=== PATIENT | female | born 1940 | race Caucasian/White ===

== ENCOUNTER 2020-09-16 16:53 | Inpatient (IN) ==
[2020-09-17] MEDS: lisinopriL 10 MG TABLET PO SCH (23:16)
[2020-09-18 05:44] LABS: Basophils # 0.1 K/mcL (0.0-0.2); Basophils % 0.9 %; Eosinophils # 0.5 K/mcL (0.0-0.6); Eosinophils % 8.2 %; Hematocrit 40.1 % (35.3-44.9); Hemoglobin 13.7 g/dL (11.5-15.4); Immature Granulocytes % 0.4 % (0-4); Lymphocytes # 1.8 K/mcL (0.6-4.6); Lymphocytes % 32.6 %; Mean Corpuscular HGB Conc 34.2 g/dL (31.6-35.5); Mean Corpuscular Hemoglobin 32.5 pg (28.0-33.3); Mean Corpuscular Volume 95.2 fL (83.0-100.0); Mean Platelet Volume 9.7 fL (9.4-12.4); Monocytes # 0.7 K/mcL (0.0-1.3); Monocytes % 13.4 %; Neutrophils # 2.5 K/mcL (1.6-8.9); Platelet Count 279 K/mcL (140-400); Red Blood Count 4.21 M/mcL (3.82-4.97); Red Cell Distribution Width 13.6 % (11.5-14.5); Segmented Neutrophils % 44.5 %; White Blood Count 5.5 K/mcL (4.3-11.1)
[2020-09-18 05:46] LABS: INR 1.4; Prothrombin Time 16.2 Seconds (9.4-12.1)
[2020-09-18 05:58] LABS: BUN/Creatinine Ratio 12 (6-26); Blood Urea Nitrogen 8 mg/dL (8-23); Calcium 8.3 mg/dL (8.6-10.3); Carbon Dioxide 22 mEq/L (23-29); Chloride 110 mEq/L (98-107); Glucose 90 mg/dL (70-105); Osmolality,Calculated 286 (280-300); Potassium 3.7 mEq/L (3.5-5.1); Sodium 139 mEq/L (136-145); eGFR For African Americans > 60 (> 60); eGFR For Non-African Americans > 60 (> 60)
[2020-09-18] MEDS: Budesonide/Formoterol 160/4.5 1 PUFF INH IH SCH ×2 (07:10→18:54)
[2020-09-18] MEDS: lisinopriL 10 MG TABLET PO SCH ×2 (08:16→20:29)
[2020-09-18] MEDS: Aspirin Enteric Coated 81 MG Tablet PO SCH (08:17)
[2020-09-18] MEDS: Mirtazapine 15 MG TABLET PO SCH (08:17)
[2020-09-18] MEDS: Metoprolol XL (24 HR) Succ 50 MG TAB.ER.24H PO SCH (08:17)
[2020-09-18] MEDS: FLUoxetine 20 MG CAPSULE PO SCH (08:17)
[2020-09-18] MEDS ORDERED: lisinopriL 10 MG TABLET PO SCH ×2 (09:00)
[2020-09-18 16:44] LABS: Bilirubin,Urine Negative (Negative); Blood,Urine Trace-intact (Negative); Clarity,Urine Clear (Clear); Color,Urine Yellow (Yellow); Glucose,Urine (UA) Normal (Normal); Ketones,Urine Negative (Negative); Leukocyte Esterase,Urine Moderate (Negative); Nitrite,Urine Negative (Negative); Protein,Urine Negative (Neg-Trace); Urobilinogen,Urine Normal (Normal)
[2020-09-18 16:48] LABS: Bacteria,Urine Few per hpf (None-Few); Squamous Epithelial Cell,Urine Moderate per hpf (None-Few); WBC,Urine 15-30 per hpf (0-3)
[2020-09-18 16:49] LABS: RBC,Urine 0-3 per hpf (0-3); Renal Epithelial Cells,Urine Few per hpf (None-Few)
[2020-09-18] MEDS ORDERED: Lactulose Oral Soln 20 GM/30 ML UDC PO PRN (17:41)
[2020-09-18] MEDS ORDERED: Bisacodyl 10 MG RECTAL SUPPOSITORY RC PRN (17:41)
[2020-09-18] MEDS ORDERED: *HR* Warfarin 5 MG TABLET PO SCH (18:00)
[2020-09-18] MEDS: Sennosides/Docusate Sodium TABLET PO SCH (20:29)
[2020-09-19] MEDS: Budesonide/Formoterol 160/4.5 1 PUFF INH IH SCH ×2 (07:06→19:05)
[2020-09-19] MEDS: FLUoxetine 20 MG CAPSULE PO SCH (08:25)
[2020-09-19] MEDS: Sennosides/Docusate Sodium TABLET PO SCH ×2 (08:25→21:29)
[2020-09-19] MEDS: Mirtazapine 15 MG TABLET PO SCH (08:25)
[2020-09-19] MEDS: Metoprolol XL (24 HR) Succ 50 MG TAB.ER.24H PO SCH (08:25)
[2020-09-19] MEDS: polyethylene glycoL 3350 17 GM POWD.PACK PO SCH (08:25)
[2020-09-19] MEDS: Aspirin Enteric Coated 81 MG Tablet PO SCH (08:26)
[2020-09-19] MEDS: lisinopriL 10 MG TABLET PO SCH ×2 (08:26→21:29)
[2020-09-20 05:47] LABS: INR 1.8; Prothrombin Time 20.2 Seconds (9.4-12.1)
[2020-09-20] MEDS: Metoprolol XL (24 HR) Succ 50 MG TAB.ER.24H PO SCH (08:46)
[2020-09-20] MEDS: Sennosides/Docusate Sodium TABLET PO SCH ×2 (08:47→21:03)
[2020-09-20] MEDS: FLUoxetine 20 MG CAPSULE PO SCH (08:47)
[2020-09-20] MEDS: lisinopriL 10 MG TABLET PO SCH ×2 (08:47→21:03)
[2020-09-20] MEDS: polyethylene glycoL 3350 17 GM POWD.PACK PO SCH (08:47)
[2020-09-20] MEDS: Aspirin Enteric Coated 81 MG Tablet PO SCH (08:47)
[2020-09-20] MEDS: Mirtazapine 15 MG TABLET PO SCH (08:47)
[2020-09-20] MEDS ORDERED: Doxycycline 100 MG CAPSULE PO SCH (09:00)
[2020-09-20] MEDS: Budesonide/Formoterol 160/4.5 1 PUFF INH IH SCH ×2 (10:43→20:55)
[2020-09-20] MEDS: Ipratropium/Albuterol Neb 3 ML IH SCH ×2 (10:43→16:58)
[2020-09-20] MEDS: *HR* Warfarin 5 MG TABLET PO SCH (16:27)
[2020-09-20 20:40] LABS: Adenovirus Not Detected (Not Detect); Coronavirus 229E Not Detected (Not Detect); Coronavirus HKU1 Not Detected (Not Detect); Coronavirus NL63 Not Detected (Not Detect); Coronavirus OC43 Not Detected (Not Detect)
[2020-09-20 20:41] LABS: Bordetella Pertussis Not Detected (Not Detect); Chlamydophila pneumoniae Not Detected (Not Detect); Human Metapneumovirus Not Detected (Not Detect); Human Rhinovirus/Enterovirus Not Detected (Not Detect); Influenza A Subtype 2009 H1 Not Detected (Not Detect); Influenza B Not Detected (Not Detect); Mycoplasma pneumoniae Not Detected (Not Detect); Parainfluenza Virus 1 Not Detected (Not Detect); Parainfluenza Virus 2 Not Detected (Not Detect); Parainfluenza Virus 3 Not Detected (Not Detect); Parainfluenza Virus 4 Not Detected (Not Detect); Respiratory Syncytial Virus Not Detected (Not Detect); SARS-CoV-2 Not Detected (Not Detect)
[2020-09-20] MEDS: Benzonatate 100 MG CAPSULE PO PRN (21:03)
[2020-09-21] MEDS: lisinopriL 10 MG TABLET PO SCH ×2 (09:00→20:20)
[2020-09-21] MEDS: Mirtazapine 15 MG TABLET PO SCH (09:00)
[2020-09-21] MEDS: Sennosides/Docusate Sodium TABLET PO SCH ×2 (09:00→20:20)
[2020-09-21] MEDS: Metoprolol XL (24 HR) Succ 50 MG TAB.ER.24H PO SCH (09:01)
[2020-09-21] MEDS: FLUoxetine 20 MG CAPSULE PO SCH (09:01)
[2020-09-21] MEDS: Aspirin Enteric Coated 81 MG Tablet PO SCH (09:01)
[2020-09-21] MEDS: polyethylene glycoL 3350 17 GM POWD.PACK PO SCH (09:01)
[2020-09-21] MEDS: Budesonide/Formoterol 160/4.5 1 PUFF INH IH SCH ×2 (10:38→22:10)
[2020-09-21] MEDS: *HR* Warfarin 5 MG TABLET PO SCH (16:49)
[2020-09-22] MEDS ORDERED: Ondansetron ODT 4 MG TAB.RAPDIS SL PRN (06:02)
[2020-09-22 06:27] LABS: Basophils # 0.1 K/mcL (0.0-0.2); Eosinophils # 0.4 K/mcL (0.0-0.6); Eosinophils % 7.3 %; Hematocrit 38.3 % (35.3-44.9); Hemoglobin 13.2 g/dL (11.5-15.4); Immature Granulocytes % 0.6 % (0-4); Lymphocytes # 1.7 K/mcL (0.6-4.6); Lymphocytes % 33.9 %; Mean Corpuscular HGB Conc 34.5 g/dL (31.6-35.5); Mean Corpuscular Hemoglobin 32.9 pg (28.0-33.3); Mean Corpuscular Volume 95.5 fL (83.0-100.0); Mean Platelet Volume 9.7 fL (9.4-12.4); Monocytes # 0.7 K/mcL (0.0-1.3); Monocytes % 13.1 %; Neutrophils # 2.2 K/mcL (1.6-8.9); Platelet Count 285 K/mcL (140-400); Red Blood Count 4.01 M/mcL (3.82-4.97); Red Cell Distribution Width 13.5 % (11.5-14.5); Segmented Neutrophils % 44.1 %
[2020-09-22 06:45] LABS: Prothrombin Time 22.1 Seconds (9.4-12.1)
[2020-09-22 06:49] LABS: BUN/Creatinine Ratio 12 (6-26); Blood Urea Nitrogen 9 mg/dL (8-23); Calcium 8.5 mg/dL (8.6-10.3); Carbon Dioxide 23 mEq/L (23-29); Chloride 109 mEq/L (98-107); Glucose 94 mg/dL (70-105); Osmolality,Calculated 288 (280-300); Potassium 3.6 mEq/L (3.5-5.1); Sodium 140 mEq/L (136-145); eGFR For African Americans > 60 (> 60); eGFR For Non-African Americans > 60 (> 60)
[2020-09-22] MEDS: Mirtazapine 15 MG TABLET PO SCH (09:09)
[2020-09-22] MEDS: polyethylene glycoL 3350 17 GM POWD.PACK PO SCH (09:09)
[2020-09-22] MEDS: lisinopriL 10 MG TABLET PO SCH ×2 (09:10→20:45)
[2020-09-22] MEDS: Aspirin Enteric Coated 81 MG Tablet PO SCH (09:10)
[2020-09-22] MEDS: FLUoxetine 20 MG CAPSULE PO SCH (09:10)
[2020-09-22] MEDS: Metoprolol XL (24 HR) Succ 50 MG TAB.ER.24H PO SCH (09:10)
[2020-09-22] MEDS: Sennosides/Docusate Sodium TABLET PO SCH ×2 (09:10→20:46)
[2020-09-22] MEDS: Budesonide/Formoterol 160/4.5 1 PUFF INH IH SCH ×2 (11:27→22:11)
[2020-09-22] MEDS: *HR* Warfarin 5 MG TABLET PO SCH (17:26)
[2020-09-23] MEDS: Aspirin Enteric Coated 81 MG Tablet PO SCH (08:01)
[2020-09-23] MEDS: FLUoxetine 20 MG CAPSULE PO SCH (08:01)
[2020-09-23] MEDS: lisinopriL 10 MG TABLET PO SCH ×2 (08:02→21:01)
[2020-09-23] MEDS: polyethylene glycoL 3350 17 GM POWD.PACK PO SCH (08:02)
[2020-09-23] MEDS: Metoprolol XL (24 HR) Succ 50 MG TAB.ER.24H PO SCH (08:02)
[2020-09-23] MEDS: Mirtazapine 15 MG TABLET PO SCH (08:02)
[2020-09-23] MEDS: Sennosides/Docusate Sodium TABLET PO SCH ×2 (08:06→21:00)
[2020-09-23] MEDS: Budesonide/Formoterol 160/4.5 1 PUFF INH IH SCH ×2 (09:05→22:17)
[2020-09-23] MEDS: *HR* Warfarin 5 MG TABLET PO SCH (17:21)
[2020-09-24] MEDS: Benzonatate 100 MG CAPSULE PO PRN ×2 (03:42→14:26)
[2020-09-24] MEDS: Budesonide/Formoterol 160/4.5 1 PUFF INH IH SCH ×2 (07:46→21:57)
[2020-09-24 11:00] LABS: Basophils # 0.1 K/mcL (0.0-0.2); Basophils % 0.9 %; Eosinophils # 0.3 K/mcL (0.0-0.6); Eosinophils % 4.7 %; Hematocrit 41.1 % (35.3-44.9); Hemoglobin 14.1 g/dL (11.5-15.4); Immature Granulocytes % 0.4 % (0-4); Lymphocytes # 1.6 K/mcL (0.6-4.6); Mean Corpuscular HGB Conc 34.3 g/dL (31.6-35.5); Mean Corpuscular Hemoglobin 32.9 pg (28.0-33.3); Mean Corpuscular Volume 95.8 fL (83.0-100.0); Mean Platelet Volume 9.4 fL (9.4-12.4); Monocytes # 0.8 K/mcL (0.0-1.3); Monocytes % 11.2 %; Neutrophils # 4.3 K/mcL (1.6-8.9); Platelet Count 309 K/mcL (140-400); Red Blood Count 4.29 M/mcL (3.82-4.97); Red Cell Distribution Width 13.8 % (11.5-14.5); Segmented Neutrophils % 60.8 %
[2020-09-24 11:04] LABS: INR 2.9; Prothrombin Time 32.3 Seconds (9.4-12.1)
[2020-09-24] MEDS: polyethylene glycoL 3350 17 GM POWD.PACK PO SCH (11:09)
[2020-09-24] MEDS: Aspirin Enteric Coated 81 MG Tablet PO SCH (11:09)
[2020-09-24] MEDS: Mirtazapine 15 MG TABLET PO SCH (11:09)
[2020-09-24] MEDS: FLUoxetine 20 MG CAPSULE PO SCH (11:09)
[2020-09-24] MEDS: Sennosides/Docusate Sodium TABLET PO SCH ×2 (11:09→20:00)
[2020-09-24] MEDS: lisinopriL 10 MG TABLET PO SCH ×2 (11:09→20:00)
[2020-09-24] MEDS: Metoprolol XL (24 HR) Succ 50 MG TAB.ER.24H PO SCH (11:10)
[2020-09-24 11:13] LABS: BUN/Creatinine Ratio 13 (6-26); Blood Urea Nitrogen 11 mg/dL (8-23); Calcium 8.9 mg/dL (8.6-10.3); Carbon Dioxide 24 mEq/L (23-29); Chloride 108 mEq/L (98-107); Glucose 107 mg/dL (70-105); Osmolality,Calculated 290 (280-300); Sodium 140 mEq/L (136-145); eGFR For African Americans > 60 (> 60); eGFR For Non-African Americans > 60 (> 60)
[2020-09-25 05:45] LABS: INR 2.5; Prothrombin Time 27.9 Seconds (9.4-12.1)
[2020-09-25] MEDS: Budesonide/Formoterol 160/4.5 1 PUFF INH IH SCH ×2 (07:18→21:28)
[2020-09-25] MEDS: Aspirin Enteric Coated 81 MG Tablet PO SCH (08:34)
[2020-09-25] MEDS: Sennosides/Docusate Sodium TABLET PO SCH ×2 (08:34→19:41)
[2020-09-25] MEDS: FLUoxetine 20 MG CAPSULE PO SCH (08:34)
[2020-09-25] MEDS: lisinopriL 10 MG TABLET PO SCH ×2 (08:34→19:41)
[2020-09-25] MEDS: Metoprolol XL (24 HR) Succ 50 MG TAB.ER.24H PO SCH (08:34)
[2020-09-25] MEDS: polyethylene glycoL 3350 17 GM POWD.PACK PO SCH (08:34)
[2020-09-25] MEDS: Mirtazapine 15 MG TABLET PO SCH (08:34)
[2020-09-25] MEDS: *HR* Warfarin 5 MG TABLET PO SCH (17:09)
[2020-09-26] MEDS: polyethylene glycoL 3350 17 GM POWD.PACK PO SCH (07:39)
[2020-09-26] MEDS: Mirtazapine 15 MG TABLET PO SCH (07:39)
[2020-09-26] MEDS: FLUoxetine 20 MG CAPSULE PO SCH (07:39)
[2020-09-26] MEDS: Sennosides/Docusate Sodium TABLET PO SCH ×2 (07:39→20:06)
[2020-09-26] MEDS: Metoprolol XL (24 HR) Succ 50 MG TAB.ER.24H PO SCH (07:39)
[2020-09-26] MEDS: lisinopriL 10 MG TABLET PO SCH ×2 (07:39→20:06)
[2020-09-26] MEDS: Aspirin Enteric Coated 81 MG Tablet PO SCH (07:39)
[2020-09-26] MEDS: Budesonide/Formoterol 160/4.5 1 PUFF INH IH SCH ×2 (10:25→21:24)
[2020-09-27 07:15] VITALS: BP 139/92
[2020-09-27] MEDS: Budesonide/Formoterol 160/4.5 1 PUFF INH IH SCH (08:20)
[2020-09-27] MEDS: Sennosides/Docusate Sodium TABLET PO SCH (09:15)
[2020-09-27] MEDS: Aspirin Enteric Coated 81 MG Tablet PO SCH (09:15)
[2020-09-27] MEDS: FLUoxetine 20 MG CAPSULE PO SCH (09:15)
[2020-09-27] MEDS: polyethylene glycoL 3350 17 GM POWD.PACK PO SCH (09:15)
[2020-09-27] MEDS: Metoprolol XL (24 HR) Succ 50 MG TAB.ER.24H PO SCH (09:15)
[2020-09-27] MEDS: Mirtazapine 15 MG TABLET PO SCH (09:15)
[2020-09-27] MEDS: lisinopriL 10 MG TABLET PO SCH (09:15)
== END 2020-09-27 14:15 | disposition home health service (06) | DRG 57 ==
LOC: INPGRE 09-17 20:30
PROVIDERS: ADMIT Family Medicine; ATTEND Family Medicine